=== PATIENT | male | born 1950 | race Caucasian/White ===

== ENCOUNTER 2023-04-16 07:59 | Outpatient (CLI) | payer MEDICARE, BC, OTHER | END 2023-04-16 08:00 | disposition home or self-care (01) | LOC: CSHCT 07:59 | PROVIDERS: ATTEND Allergy & Immunology | DX: J32.9 Chronic sinusitis, unspecified (principal) ==

== ENCOUNTER 2025-04-08 11:43 | Observation (INO) | payer MEDICARE, OTHER ==
[~2025-04-08 11:43] MED LIST: Iopamidol 370 76% 100 ML VIAL ONE
[2025-04-08 12:49] LABS: #Basophils 0.04 10x3/uL (0.0-0.2); #Eosinophils 0.10 10x3/uL (0.0-0.5); #Monocytes 1.01 10x3/uL (0.0-1.1); #Neutrophils 10.15 10x3/uL (1.5-8.4); %Basophils 0.3 % (0.0-2.0); %Eosinophils 0.8 % (0.0-6.0); %Lymphocytes 11.1 % (18.0-47.0); %Monocytes 7.9 % (0.0-10.0); %Neutrophils 79.3 % (40.0-75.0); Hematocrit 37.0 % (38.8-50.0); Hemoglobin 11.8 g/dL (13.5-17.5); Mean Corpuscular Hemoglobin 27.4 pg (27.0-33.0); Mean Corpuscular Volume 85.8 fL (81.2-95.1); Platelet Count 281 10x3/uL (150-450); Red Blood Cell (RBC) Count 4.31 10x6/uL (4.32-5.72); White Blood Cell (WBC) Count 12.80 10x3/uL (3.5-10.5)
[2025-04-08 13:01] LABS: INR-International Normal Ratio 1.0; PTT 23.0 sec (22.0-33.0); Prothrombin Time 11.1 sec (9.5-12.1)
[2025-04-08 13:03] LABS: Acetaminophen Less than 10 mcg/mL (Less than 10); Salicylate Less than 8.0 mg/dL (Less than 8.0)
[2025-04-08 13:05] LABS: ALT (SGPT) 17 U/L (Less than 45); AST (SGOT) 28 U/L (11-34); Albumin 3.8 g/dL (3.1-4.5); Alkaline Phosphatase 44 U/L (40-110); Anion Gap 17 mmol/L (10-20); BUN (Urea Nitrogen) 14 mg/dL (8.4-25.7); Bilirubin, Total 0.7 mg/dL (0.3-1.2); Calc. Creatinine Clearance 0 mL/min (70-130); Calcium 9.6 mg/dL (7.8-10.44); Carbon Dioxide 27 mmol/L (23-31); Chloride 101 mmol/L (98-107); Globulin 3.0 g/dL (2.4-3.5); Glucose 125 mg/dL (83-110); Potassium 4.6 mmol/L (3.5-5.1); Sodium 140 mmol/L (136-145)
[2025-04-08 13:11] LABS: Troponin I Less than 0.010 ng/mL (< 0.028)
[2025-04-08] MEDS ORDERED: Pantoprazole 40 MG VIAL ONE (15:00)
[2025-04-08 16:08] LABS: Cocaine Metabolite Screen Negative (Negative); THC/Cannabinoid Screen Negative (Negative); Tricyclic Screen Negative (Negative)
[2025-04-08] MEDS ORDERED: Nitroglycerin 0.4 MG TAB (25 Tab Bottle) SL PRN (17:45)
[2025-04-08] MEDS ORDERED: Ondansetron PF 4 MG/2 ML Vial IVP PRN (17:45)
[2025-04-08] MEDS ORDERED: HYDROcodone/Acetaminophen 5/325 mg Tablet PO PRN (18:27)
[2025-04-08 19:11] LABS: Troponin I Less than 0.010 ng/mL (< 0.028)
[2025-04-08] MEDS ORDERED: Heparin 5,000 UNITS/ML VIAL SC SCH (21:00)
[2025-04-08] MEDS ORDERED: Famotidine/PF 20 mg/2ml Vial SLOW IVP SCH (21:00)
[2025-04-08] MEDS ORDERED: Famotidine 20 MG TAB PO SCH (21:00)
[2025-04-08 21:29] VITALS: BMI 29.1
[2025-04-08] MEDS: Rosuvastatin 20 MG TAB PO SCH (21:48)
[2025-04-08 21:57] LABS: Troponin I Less than 0.010 ng/mL (< 0.028)
[2025-04-09 05:39] LABS: #Basophils 0.04 10x3/uL (0.0-0.2); #Eosinophils 0.19 10x3/uL (0.0-0.5); #Monocytes 1.19 10x3/uL (0.0-1.1); #Neutrophils 7.13 10x3/uL (1.5-8.4); %Basophils 0.4 % (0.0-2.0); %Eosinophils 1.8 % (0.0-6.0); %Lymphocytes 17.0 % (18.0-47.0); %Monocytes 11.5 % (0.0-10.0); %Neutrophils 68.9 % (40.0-75.0); Hematocrit 31.3 % (38.8-50.0); Hemoglobin 10.2 g/dL (13.5-17.5); Mean Corpuscular Hemoglobin 27.6 pg (27.0-33.0); Mean Corpuscular Volume 84.8 fL (81.2-95.1); Platelet Count 238 10x3/uL (150-450); Red Blood Cell (RBC) Count 3.69 10x6/uL (4.32-5.72); White Blood Cell (WBC) Count 10.35 10x3/uL (3.5-10.5)
[2025-04-09 06:00] LABS: ALT (SGPT) 16 U/L (Less than 45); AST (SGOT) 54 U/L (11-34); Albumin 3.1 g/dL (3.1-4.5); Alkaline Phosphatase 37 U/L (40-110); Anion Gap 13 mmol/L (10-20); BUN (Urea Nitrogen) 16 mg/dL (8.4-25.7); Bilirubin, Total 0.4 mg/dL (0.3-1.2); Calc. Creatinine Clearance 60 mL/min (70-130); Calcium 8.7 mg/dL (7.8-10.44); Carbon Dioxide 24 mmol/L (23-31); Cardiac Risk 3.0 (Less than 4.5); Chloride 106 mmol/L (98-107); Cholesterol 86 mg/dl (< 200 Desired); Globulin 3.2 g/dL (2.4-3.5); Glucose 104 mg/dL (83-110); HDL Cholesterol 29 mg/dL (>60 Neg Risk); LDL Cholesterol, Calculated 21 mg/dL; Potassium 4.0 mmol/L (3.5-5.1); Sodium 139 mmol/L (136-145); Triglycerides 181 mg/dL (Less than 150)
[2025-04-09] MEDS: Aspirin Chewable 81 MG TAB PO SCH (08:41)
[2025-04-09] MEDS: Carvedilol 6.25 MG TAB PO SCH (08:41)
[2025-04-09 16:45] VITALS: BP 123/68; TEMP 98.1
[2025-04-09] MEDS: Acetaminophen 325 MG TAB PO PRN (16:46)
== END 2025-04-09 18:40 | disposition home or self-care (01) ==
LOC: CSHERS 11:43 → CSHTELE 17:49
PROVIDERS: ADMIT Family Medicine; ATTEND Hospitalist
PROC: B24BZZZ Ultrasonography of Heart with Aorta (ICD-10-PCS; principal; 2025-04-09)
DX: R55 Syncope and collapse (principal); R11.10 Vomiting, unspecified; I07.1 Rheumatic tricuspid insufficiency; I10 Essential (primary) hypertension; I25.10 Atherosclerotic heart disease of native coronary artery without angina pectoris; E78.5 Hyperlipidemia, unspecified; D72.829 Elevated white blood cell count, unspecified; D64.9 Anemia, unspecified; Z95.5 Presence of coronary angioplasty implant and graft; Z88.2 Allergy status to sulfonamides; Z88.0 Allergy status to penicillin; Z79.82 Long term (current) use of aspirin; Z79.02 Long term (current) use of antithrombotics/antiplatelets; Z79.899 Other long term (current) drug therapy
CPT/HCPCS: 70496; 70498; 70551; 71045; 80053 ×2; 80061; 80306; 80307; 84484 ×2; 85025 ×2; 85610; 85730; 93005; 93306; 94760; 96374; 96375; 99285; G0378 ×3; J2470; J7030 ×2; Q9967; 36415; 93010